=== PATIENT | female | born 1995 | race Caucasian/White ===

== ENCOUNTER 2024-04-07 18:59 | Outpatient (CLI) | payer MEDICAID ==
[~2024-04-07] VITALS: Wt 101.8 kg
[~2024-04-07 18:59] MED LIST: DAZIDOX10 MG PO; IBU800 M1 PO; NATURAL IRON65 MG; PRENATAL; PRILOSEC10 MG PO; PROZAC 20MG20 MG PO
--- NOTE | 2024-04-07 19:00 | NUR ---
PT AMBULATORY TO UNIT. PLACED ON MONITOR AND VITAL SIGNS OBTAINED. PT REPORTS NO LOF/VB, CTX EVERY 1-3 MINUTES, POSITIVE MOVEMENT. SVE CLOSED/-2. 1936- DR. LOPEZ CALLED, SEE PHYSICIAN NOTIFICATION. PT UPDATED ON NEW ORDERS AND QUESTIONS ANSWERED. 1999- IV STARTED, LR BOLUS INFUSING.
[2024-04-07] MEDS ORDERED: PRIL40 PO (19:24)
[2024-04-07 19:30] VITALS: BP 122/58; PULSE 91; TEMP 98.2
[2024-04-07 20:00] VITALS: PULSE 94
[2024-04-07] MEDS ORDERED: LR 1,000 ML IV PRN (20:15)
[2024-04-07 20:30] VITALS: BP 118/55; PULSE 81
[2024-04-07 20:47] VITALS: BP 109/57; PULSE 80
--- NOTE | 2024-04-07 21:05 | NUR ---
RN TO BEDSIDE, DISCUSSED DISCHARGE EDUCATION PACKET AND LABOR PRECAUTIONS, PT VERBALIZED UNDERSTANDING OF INFORMATION. PT AMBULATED OFF UNIT.
== END 2024-04-07 21:05 | disposition home or self-care (01) ==
LOC: LDRO 18:59
DX: O62.9 Abnormality of forces of labor, unspecified (principal); Z3A.36 36 weeks gestation of pregnancy

== ENCOUNTER 2024-04-13 10:41 | Inpatient (IN) | payer MEDICAID ==
[2024-04-13] VITALS (20 sets, daily range): BP systolic 104–140; BP diastolic 50–73; PULSE 82–103; TEMP 97.9–98
[~2024-04-13] VITALS: Ht 165.1 cm; Wt 106.4 kg
[~2024-04-13 10:41] MED LIST changes: +PRIL40 PO
--- NOTE | 2024-04-13 10:50 | NUR ---
1050PT AMBULATORY TO UNIT WITH SPOUSE FOR POSSIBLE SROM. 1054THIS RN AT BEDSIDE TO PLACE TOCO AND EFM. FHR DIFFICULT TO TRACE. BASELINE 140S. PT REPORTS HER WATER BROKE AT 0930. PT REPORTS MODERATE AMOUNT OF CLEAR FLUID. PT REPORTS POSITIVE MOVEMENT. PT DENIES VAGINAL BLEEDING. PT REPORT MAYBE FEELING CTX EVERY 15 TO 20 MINUTES, BUT SHE DOESNT FEEL THEM, CAN ONLY TELL IF SHE FEELS HER BELLY. 1105SVE AT THIS TIME PER THIS RN. 3. AMNITRACE SWAB X2 AT THIS TIME. AMNITRACE X2 POSITIVE. 1120DR CATRINA NOTIFIED.
[2024-04-13] MEDS ORDERED: LR 1,000 ML IV SCH (11:30)
[2024-04-13] MEDS ORDERED: Azithromycin 500 MG in NS 250 ML IV ONE (12:00)
[2024-04-13 12:11] LABS: BASO % 0.3 % (0.0-2.0); EOS # 0.1 K/mm3 (0.0-0.7); EOS % 0.7 % (0.0-4.0); GRAN # 7.2 K/mm3 (1.4-6.5); GRAN % 73.6 % (42.2-75.2); HEMOGLOBIN 10.7 g/dl (12.5-16.0); LYMPH # 1.5 K/mm3 (1.2-3.4); LYMPH % 15.7 % (20.0-51.0); MEAN CELL VOLUME 79 fl (80.0-100.0); MEAN CORPUSCULAR HEMOGLOBIN 24 pg (27-31); MEAN CORPUSCULAR HGB CONC 31 g/dl (33.0-37.0); MEAN PLATELET VOLUME 10.1 fl (7.4-10.4); MONO # 0.9 K/mm3 (0.1-0.6); MONO % 8.9 % (1.7-9.3); PLATELET COUNT 274 K/mm3 (130-400); RED BLOOD COUNT 4.42 M/mm3 (4.10-5.30); REDCELL DISTRIBUTION WIDTH-CV 18.2 % (11.5-14.5)
[2024-04-13 12:15] LABS: HEMATOCRIT 34.7 % (37.0-47.0)
[2024-04-13] MEDS ORDERED: LR 1,000 ML IV PRN (14:30)
[2024-04-13] MEDS ORDERED: Measles/Mumps/Rubella Virus Vaccine Live w Diluent 0.5 ML VIAL SQ SCH (14:30)
[2024-04-13] MEDS ORDERED: Acetaminophen 500 MG TAB PO PRN (14:30)
[2024-04-13] MEDS ORDERED: Magnes Hydrox (MOM) 80 MG/ML 30 ML CUP PO PRN (14:30)
[2024-04-13] MEDS ORDERED: Loratadine 10 MG TAB PO PRN (14:30)
[2024-04-13] MEDS ORDERED: Ondansetron 4 MG/2 ML VIAL IV PRN (14:30)
[2024-04-13] MEDS ORDERED: oxyCODONE 5 MG TAB PO PRN (14:30)
[2024-04-13] MEDS ORDERED: Naloxone 0.4 MG/ML VIAL IV PRN (14:30)
[2024-04-13] MEDS ORDERED: Phenylephrine 10 MG/ML VIAL ONE (14:34)
[2024-04-13] MEDS ORDERED: Ondansetron 4 MG/2 ML VIAL ONE (14:35)
[2024-04-13] MEDS ORDERED: Oxytocin 10 UNITS/ML VIAL ONE ×2 (14:35→15:18)
[2024-04-13] MEDS ORDERED: NS 10 ML IV ONE ×2 (14:35)
[2024-04-13] MEDS ORDERED: droPERidol 2.5 MG/ML 2 ML VIAL ONE (15:12)
[2024-04-13] MEDS ORDERED: LR 1,000 ML IV ONE ×2 (15:17)
[2024-04-13] MEDS ORDERED: Meperidine 50 MG/ML 1 ML VIAL ONE (15:21)
[2024-04-13] MEDS ORDERED: fentaNYL 50 MCG/ML 2 ML VIAL ONE (15:22)
[2024-04-13] MEDS ORDERED: Tranexamic Acid 1,000 MG/10 ML VIAL ONE (15:27)
[2024-04-13] MEDS ORDERED: Sennosides/Docusate 8.6-50 MG TAB PO SCH (17:00)
[2024-04-13] MEDS ORDERED: Ibuprofen 800 MG TAB PO SCH (20:24)
[2024-04-13] MEDS ORDERED: traZODone 50 MG TAB PO PRN (21:00)
[2024-04-14 07:09] VITALS: BP 116/64; PULSE 76
--- NOTE | 2024-04-14 10:22 | NUR ---
Initial visit attempt; Hearing Screening in progress. [employer] left card offering congratulations to parents for the of their son and information regarding the availability of Spiritual Care at our hospital.
[2024-04-14] MEDS ORDERED: MOTRIN 800800 MG/TAB PO (11:50)
[2024-04-14] MEDS ORDERED: PERCOCET 325 MG1 TA2 PO (11:51)
--- NOTE | 2024-04-14 11:53 | NUR ---
THIS RN GIVES REPORT TO PCR.JON, PT CARE ASSUMED OVER TO RN
[2024-04-14 12:30] VITALS: BP 116/64; PULSE 92; TEMP 98
[2024-04-14] MEDS ORDERED: Omeprazole 40 MG **** subs to Pantoprazole 40 MG PO SCH (13:15)
[2024-04-14 16:00] VITALS: BP 126/69; PULSE 85; TEMP 98
[2024-04-14 19:30] VITALS: BP 124/64; PULSE 87; TEMP 98.5
[2024-04-15 09:00] VITALS: BP 120/76; PULSE 97; TEMP 98.1
--- NOTE | 2024-04-15 10:50 | NUR ---
DC INSTRUCTIONS REVIEWED WITH PT. PT UNDERSTANDS.
== END 2024-04-15 11:00 | disposition home or self-care (01) | DRG 788 ==
LOC: LDRO 10:41 → LDR 11:25 → LDRO 11:28 → OB 11:29 → LDR 11:29 → OB 16:30
PROVIDERS: ADMIT Obstetrics & Gynecology
PROC: 10D00Z1 Extraction of Products of Conception, Low, Open Approach (ICD-10-PCS; principal; 2024-04-13)
DX: O34.211 Maternal care for low transverse scar from previous cesarean delivery (principal); O99.214 Obesity complicating childbirth; Z3A.37 37 weeks gestation of pregnancy; Z37.0 Single live birth; O99.02 Anemia complicating childbirth; D64.9 Anemia, unspecified; O36.63X0 Maternal care for excessive fetal growth, third trimester, not applicable or unspecified; O99.62 Diseases of the digestive system complicating childbirth; K21.9 Gastro-esophageal reflux disease without esophagitis; O42.92 Full-term premature rupture of membranes, unspecified as to length of time between rupture and onset of labor
CPT/HCPCS: A9284; J0456; J0690; J1790; J2175; J2371; J2405; J2590; J3010; J7050; J7120